=== PATIENT | female | born 1955 | race Hispanic/Latino ===

== ENCOUNTER 2018-03-23 11:58 | Inpatient (IN) | payer BC, OTHER ==
[~2018-03-23] VITALS: Ht 154.9 cm; Wt 84.1 kg
[~2018-03-23 11:58] MED LIST: ASPI-555 PO; BUPR75TA8 PO; DEXT10TA4 PO; HYDR-4068 PO; INSU300I SQ; LOSA100T29 PO; METF10004 PO; METO100T14 PO; NITR0.4T SL; PRAS10TA6 PO; PREG75 PO; TIZA4TAB4 PO; TRULIC
[2018-03-23 13:55] VITALS: BP 151/71
[2018-03-23] MEDS: NITROGLYCERIN 1GM/1 INCH PACKET TD SCH ×2 (15:31→22:30)
[2018-03-23 16:00] VITALS: BP 128/57
[2018-03-23] MEDS ORDERED: GLUCAGON 1MG KIT 1 MG ML IM PRN (19:15)
[2018-03-23] MEDS ORDERED: DEXTROSE 50%-WATER 50 ML DISP.SYRIN IV PRN (19:15)
[2018-03-23 19:36] VITALS: BP 128/54
[2018-03-23] MEDS: METOPROLOL TARTRATE 50 MG TAB PO SCH (20:30)
[2018-03-23] MEDS: ATORVASTATIN CALCIUM 20 MG TABLET PO SCH (20:30)
[2018-03-23] MEDS: INSULIN HUMULIN R 100 UNIT/ML 3ML SQ SCH (20:33)
[2018-03-23 23:23] VITALS: BP 136/47
[2018-03-24] VITALS (24 sets, daily range): BP systolic 84–180; BP diastolic 37–95
[2018-03-24 04:21] LABS: BASOPHILS % (AUTO) 0.6 % (0.0-5.0); EOSINOPHILS % (AUTO) 2.4 % (0.0-8.0); HEMATOCRIT 33.1 % (36-48); LYMPHOCYTES % (AUTO) 45.8 % (21.0-51.0); MEAN CORPUSCULAR HEMOGLOBIN 31.8 pg (27.0-33.0); MEAN CORPUSCULAR HGB CONC 36.3 g/dL (32.0-36.0); MEAN CORPUSCULAR VOLUME 87.5 fL (79-99); MONOCYTES % (AUTO) 7.7 % (3.0-13.0); NEUTROPHILS % (AUTO) 43.5 % (40.0-77.0); NUCLEATED RED BLOOD CELLS 0.1 % (0.0-0.19); PLATELET COUNT (AUTO) 253 K/uL (130-400); RED BLOOD CELL COUNT(AUTO) 3.78 MIL/uL (4.00-5.50); RED CELL DISTRIBUTION WIDTH 14.2 % (11.0-15.5); WHITE BLOOD COUNT (AUTO) 12.2 K/uL (4.8-10.8)
[2018-03-24 04:35] LABS: INR 0.95 (0.85-1.15); PARTIAL THROMBOPLASTIN TIME 29.4 SEC (26.3-35.5)
[2018-03-24 05:07] LABS: CREATININE 0.9 mg/dL (0.5-1.5); POTASSIUM 4.4 mmol/L (3.5-5.1)
[2018-03-24] MEDS: INSULIN HUMULIN R 100 UNIT/ML 3ML SQ SCH (05:49)
[2018-03-24] MEDS: NITROGLYCERIN 1GM/1 INCH PACKET TD SCH (05:56)
[2018-03-24] MEDS ORDERED: IOPAMIDOL-370 100 ML VIAL IV ONE (08:43)
[2018-03-24] MEDS ORDERED: LIDOCAINE HCL 2% 20ML ONE (08:43)
[2018-03-24] MEDS ORDERED: ISOVUE-370 50ML VIAL IV ONE (08:43)
[2018-03-24] MEDS ORDERED: HEPARIN SODIUM 1000UNIT/ML 10ML VIAL ONE ×3 (08:43→14:40)
[2018-03-24] MEDS: ASPIRIN 81 MG EC TAB PO SCH (09:00)
[2018-03-24] MEDS: METOPROLOL TARTRATE 50 MG TAB PO SCH (09:00)
[2018-03-24] MEDS ORDERED: PRASUGREL HCL 10 MG TABLET PO SCH (09:00)
[2018-03-24] MEDS ORDERED: LOSARTAN 100 MG TABLET PO SCH (09:00)
[2018-03-24] MEDS ORDERED: LABETALOL HCL 5 MG/ML 20ML VIAL IV ONE (09:35)
[2018-03-24] MEDS ORDERED: NITROGLYCERIN 4.1 GM SPRAY TL ONE (09:44)
[2018-03-24] MEDS ORDERED: CEFUROXIME 1.5GM+NS 100ML 100 ML IV SCH (10:00)
[2018-03-24] MEDS ORDERED: NITROGLYCERIN 1GM/1 INCH PACKET TD SCH (10:07)
[2018-03-24] MEDS ORDERED: CEFUROXIME SODIUM 1.5 GM VIAL IVP SCH (10:15)
[2018-03-24] MEDS ORDERED: SODIUM CHLORIDE 0.9% 1000ML 1,000 ML IV SCH ×2 (10:30→16:15)
[2018-03-24] MEDS ORDERED: OCTYL 2-CYANOACRYLATE 1 EACH TP ONE (11:02)
[2018-03-24] MEDS ORDERED: BACITRACIN 50,000 UNIT VIAL ONE (11:02)
[2018-03-24] MEDS ORDERED: PAPAVERINE HCL 30 MG/ML 2ML VIAL ONE (11:02)
[2018-03-24] MEDS ORDERED: PRED10TA23 PO (11:04)
[2018-03-24] MEDS ORDERED: LEVO500T2 PO (11:04)
[2018-03-24 11:10] LABS: CHOLESTEROL 184 mg/dL (<200); HDL CHOLESTEROL 39 mg/dL (35-85); LDL DIRECT 116 mg/dL (0-99); TRIGLYCERIDES 209 mg/dL (30-200)
[2018-03-24] MEDS ORDERED: ONDANSETRON HCL 4 MG/2 ML VIAL ONE (11:19)
[2018-03-24 11:27] LABS: HEMOGLOBIN A1C 7.9 % (4.0-6.0)
[2018-03-24] MEDS ORDERED: ROCURONIUM BROMIDE 10MG/1ML 5ML VL ONE (12:59)
[2018-03-24] MEDS ORDERED: ESMOLOL HCL 10 MG/ML 10 ML VIAL ONE (12:59)
[2018-03-24] MEDS ORDERED: NOREPINEPHRINE BITARTRATE 1 MG/1 ML ML IV ONE (12:59)
[2018-03-24] MEDS ORDERED: PROTAMINE SULFATE 10 MG/ML 25ML VIAL IV ONE (12:59)
[2018-03-24] MEDS ORDERED: MILRINONE-D5W 20 MG/100 ML 0 ML IV ONE (12:59)
[2018-03-24] MEDS ORDERED: AMINOCAPROIC ACID 250 MG/ML 20 ML VIAL IV ONE (12:59)
[2018-03-24] MEDS ORDERED: EPINEPHRINE 1 MG/ML AMPULE ONE (12:59)
[2018-03-24] MEDS ORDERED: NEOSTIGMINE 5MG/5ML SYR IV ONE (12:59)
[2018-03-24] MEDS ORDERED: LIDOCAINE PF 2% 5ML ABBOJECT ONE (12:59)
[2018-03-24] MEDS ORDERED: GLYCOPYRROLATE 0.2 MG/ML 5 ML VIAL ONE (12:59)
[2018-03-24] MEDS ORDERED: PROPOFOL 10 MG/ML 20ML VIAL IV ONE (13:00)
[2018-03-24] MEDS ORDERED: FENTANYL CITRATE PF 50 MCG/1 ML 20ML VIAL IJ ONE (13:00)
[2018-03-24] MEDS ORDERED: MIDAZOLAM HCL 1 MG/ML 5ML VIAL ONE (13:00)
[2018-03-24 14:40] LABS: ABG BASE EXCESS -5.1 mmol/L (-2.0-3.0); ABG HCO3 19.7 mmol/L (21.0-28.0); ABG OXYGEN SATURATION 98.8 % (95.0-99.0); ABG PCO2 36 mmHg (32-45)
[2018-03-24] MEDS ORDERED: THROMBIN-JMI 5000 UNIT/VIAL TP ONE (14:41)
[2018-03-24] MEDS ORDERED: NITROGLYCERIN 50 MG/D5% WATER 1 BOT ONE (14:48)
[2018-03-24 16:13] LABS: ABG BASE EXCESS -6.1 mmol/L (-2.0-3.0); ABG HCO3 19.5 mmol/L (21.0-28.0); ABG OXYGEN SATURATION 99.1 % (95.0-99.0); ABG PCO2 39 mmHg (32-45)
[2018-03-24] MEDS ORDERED: SODIUM CHLORIDE 0.9% 500ML 500 ML IV SCH (16:13)
[2018-03-24] MEDS ORDERED: SODIUM CHLORIDE 0.9% 10 ML VIAL IVP PRN (16:15)
[2018-03-24] MEDS ORDERED: NICARDIPINE HCL 100 MG in SODIUM CHLORIDE 0.9% 100 ML IV PRN (16:15)
[2018-03-24] MEDS ORDERED: POTASSIUM PHOS 15 mMOL+NS250ML 250 ML IV PRN (16:15)
[2018-03-24] MEDS ORDERED: NITROGLYCERIN 50 MG/D5% WATER 250 BOT IV SCH (16:15)
[2018-03-24] MEDS ORDERED: MORPHINE SULFATE 4 MG/1ML SYG IV PRN (16:15)
[2018-03-24] MEDS ORDERED: PROPOFOL 1000 MG/100 ML 100 ML IV PRN (16:15)
[2018-03-24] MEDS ORDERED: GLUCAGON 1MG KIT 1 MG ML IM PRN (16:15)
[2018-03-24] MEDS ORDERED: ONDANSETRON HCL 4 MG/2 ML VIAL IV PRN (16:15)
[2018-03-24] MEDS ORDERED: MORPHINE SULFATE 2 MG/ML 1ML SYG IV PRN (16:15)
[2018-03-24] MEDS ORDERED: AMINOCAPROIC ACID 15,000 MG in SODIUM CHLORIDE 0.9% 250 ML IV SCH (16:15)
[2018-03-24] MEDS ORDERED: EPINEPHRINE 2 MG in SODIUM CHLORIDE 0.9% 250 ML IV PRN (16:15)
[2018-03-24] MEDS ORDERED: ALBUMIN (HUMAN) 5% 250 ML IV PRN (16:15)
[2018-03-24] MEDS ORDERED: NOREPINEPHRINE 4MG/NS 250ML 250 ML IV PRN (16:15)
[2018-03-24] MEDS ORDERED: SODIUM BICARB 8.4% 50ML SYRINGE IV PRN (16:15)
[2018-03-24] MEDS ORDERED: ACETAMINOPHEN 650 MG SUPPOSITORY RC PRN (16:15)
[2018-03-24] MEDS ORDERED: CALCIUM GLUCONATE 1 GM in SODIUM CHLORIDE 0.9% 50 ML IV PRN (16:15)
[2018-03-24] MEDS ORDERED: DEXTROSE 50%-WATER 50 ML DISP.SYRIN IV PRN (16:15)
[2018-03-24] MEDS ORDERED: SODIUM CHLORIDE 0.9% 250 ML IV PRN (16:15)
[2018-03-24] MEDS ORDERED: SODIUM BICARB 50MEQ 50ML VIAL ONE ×2 (16:17→17:14)
[2018-03-24 17:14] LABS: ABG BASE EXCESS -6.6 mmol/L (-2.0-3.0); ABG HCO3 18.6 mmol/L (21.0-28.0); ABG PCO2 37 mmHg (32-45)
[2018-03-24 17:18] LABS: HEMATOCRIT 27.6 % (36-48); MEAN CORPUSCULAR HEMOGLOBIN 31.5 pg (27.0-33.0); MEAN CORPUSCULAR HGB CONC 35.8 g/dL (32.0-36.0); MEAN CORPUSCULAR VOLUME 87.9 fL (79-99); PLATELET COUNT (AUTO) 256 K/uL (130-400); RED BLOOD CELL COUNT(AUTO) 3.14 MIL/uL (4.00-5.50); RED CELL DISTRIBUTION WIDTH 14.2 % (11.0-15.5); WHITE BLOOD COUNT (AUTO) 20.4 K/uL (4.8-10.8)
[2018-03-24 17:30] LABS: CREATININE 1.1 mg/dL (0.5-1.5); MAGNESIUM 1.4 mg/dL (1.80-2.40); POTASSIUM 3.4 mmol/L (3.5-5.1)
[2018-03-24] MEDS: INSULIN REGULAR, HUMAN 3ML 100 UNIT in SODIUM CHLORIDE 0.9% 99 ML IV SCH ×2 (17:36)
[2018-03-24] MEDS: POTASSIUM CHLORIDE 20MEQ/100ML 100 ML IV PRN ×2 (17:44→21:42)
[2018-03-24] MEDS: MAGNESIUM 2GM PREMIX 50ML 50 ML IV PRN (18:47)
[2018-03-24] MEDS ORDERED: EPINEPHRINE 8 MG in DEXTROSE 5%-WATER 250 ML IV PRN (19:30)
[2018-03-24] MEDS ORDERED: EPINEPHRINE 8 MG in SODIUM CHLORIDE 0.9% 250 ML IV PRN (19:33)
[2018-03-24] MEDS: ATORVASTATIN CALCIUM 20 MG TABLET PO SCH (21:00)
[2018-03-24 21:06] LABS: ABG HCO3 26.7 mmol/L (21.0-28.0); ABG OXYGEN SATURATION 96.6 % (95.0-99.0); ABG PCO2 42 mmHg (32-45)
[2018-03-24 23:49] LABS: ABG BASE EXCESS -0.1 mmol/L (-2.0-3.0); ABG HCO3 23.7 mmol/L (21.0-28.0); ABG OXYGEN SATURATION 96.4 % (95.0-99.0); ABG PCO2 36 mmHg (32-45)
[2018-03-25] VITALS (33 sets, daily range): BP systolic 98–144; BP diastolic 45–71
[2018-03-25] MEDS ORDERED: CEFUROXIME 1.5GM+NS 100ML 100 ML IV SCH (00:15)
[2018-03-25] MEDS: CEFUROXIME SODIUM 1.5 GM VIAL IVP SCH ×2 (00:23→11:46)
[2018-03-25 01:53] LABS: ABG HCO3 23.5 mmol/L (21.0-28.0); ABG OXYGEN SATURATION 92.5 % (95.0-99.0); ABG PCO2 34 mmHg (32-45)
[2018-03-25] MEDS: ACETAMINOPHEN 325 MG TAB PO PRN (02:20)
[2018-03-25 03:56] LABS: HEMATOCRIT 29.3 % (36-48); MEAN CORPUSCULAR HEMOGLOBIN 30.3 pg (27.0-33.0); MEAN CORPUSCULAR HGB CONC 34.9 g/dL (32.0-36.0); MEAN CORPUSCULAR VOLUME 86.9 fL (79-99); PLATELET COUNT (AUTO) 251 K/uL (130-400); RED BLOOD CELL COUNT(AUTO) 3.37 MIL/uL (4.00-5.50); WHITE BLOOD COUNT (AUTO) 20.6 K/uL (4.8-10.8)
[2018-03-25 04:08] LABS: MAGNESIUM 1.9 mg/dL (1.80-2.40); PHOSPHORUS 3.6 mg/dL (2.5-4.9); POTASSIUM 3.7 mmol/L (3.5-5.1)
[2018-03-25] MEDS: POTASSIUM CHLORIDE 20MEQ/100ML 100 ML IV PRN ×2 (04:13→14:38)
[2018-03-25] MEDS: MAGNESIUM 2GM PREMIX 50ML 50 ML IV PRN (04:14)
[2018-03-25] MEDS: TRAMADOL HCL 50 MG TABLET PO PRN ×3 (04:22→15:21)
[2018-03-25] MEDS: ASPIRIN 81 MG EC TAB PO SCH (09:28)
[2018-03-25] MEDS: PANTOPRAZOLE SODIUM 40 MG TABLET.DR PO SCH (09:28)
[2018-03-25] MEDS: INSULIN REGULAR, HUMAN 3ML 100 UNIT in SODIUM CHLORIDE 0.9% 99 ML IV SCH ×2 (09:33)
[2018-03-25 10:19] LABS: MAGNESIUM 2.5 mg/dL (1.80-2.40); POTASSIUM 3.7 mmol/L (3.5-5.1)
[2018-03-25] MEDS ORDERED: CEFTRIAXONE SODIUM 1 GM IV SCH (12:00)
[2018-03-25] MEDS: METOPROLOL TARTRATE 25 MG TAB PO SCH ×2 (14:25→20:48)
[2018-03-25] MEDS ORDERED: LACTATED RINGERS 1000ML 1,000 ML IV ONE (15:28)
[2018-03-25] MEDS: FUROSEMIDE 20 MG TABLET PO SCH (19:10)
[2018-03-25] MEDS: ATORVASTATIN CALCIUM 10 MG TABLET PO SCH (20:48)
[2018-03-25] MEDS: ATORVASTATIN CALCIUM 20 MG TABLET PO SCH (21:00)
[2018-03-26] VITALS (16 sets, daily range): BP systolic 90–144; BP diastolic 49–69
[2018-03-26] MEDS: CEFUROXIME SODIUM 1.5 GM VIAL IVP SCH (01:28)
[2018-03-26] MEDS: TRAMADOL HCL 50 MG TABLET PO PRN ×3 (02:35→19:19)
[2018-03-26 04:01] LABS: HEMATOCRIT 26.1 % (36-48); MEAN CORPUSCULAR HEMOGLOBIN 31.9 pg (27.0-33.0); MEAN CORPUSCULAR HGB CONC 35.6 g/dL (32.0-36.0); MEAN CORPUSCULAR VOLUME 89.6 fL (79-99); PLATELET COUNT (AUTO) 241 K/uL (130-400); RED BLOOD CELL COUNT(AUTO) 2.92 MIL/uL (4.00-5.50); RED CELL DISTRIBUTION WIDTH 14.7 % (11.0-15.5); WHITE BLOOD COUNT (AUTO) 27.5 K/uL (4.8-10.8)
[2018-03-26 04:08] LABS: CREATININE 1.3 mg/dL (0.5-1.5); POTASSIUM 4.3 mmol/L (3.5-5.1)
[2018-03-26] MEDS: METOPROLOL TARTRATE 25 MG TAB PO SCH ×2 (08:55→21:18)
[2018-03-26] MEDS: ASPIRIN 81 MG EC TAB PO SCH (08:55)
[2018-03-26] MEDS: PANTOPRAZOLE SODIUM 40 MG TABLET.DR PO SCH (08:55)
[2018-03-26] MEDS: FUROSEMIDE 20 MG TABLET PO SCH ×2 (08:55→16:24)
[2018-03-26] MEDS: ACETAMINOPHEN 325 MG TAB PO PRN (08:56)
[2018-03-26] MEDS: INSULIN HUMULIN R 100 UNIT/ML 3ML SQ SCH ×3 (11:57→21:48)
[2018-03-26] MEDS: ENOXAPARIN SODIUM 30 MG/0.3 ML SQ SCH (15:34)
[2018-03-26] MEDS: ATORVASTATIN CALCIUM 10 MG TABLET PO SCH (21:18)
[2018-03-27 04:00] VITALS: BP 135/61
[2018-03-27] MEDS: TRAMADOL HCL 50 MG TABLET PO PRN (04:48)
[2018-03-27] MEDS: INSULIN HUMULIN R 100 UNIT/ML 3ML SQ SCH ×4 (05:24→21:49)
[2018-03-27] MEDS: PANTOPRAZOLE SODIUM 40 MG TABLET.DR PO SCH (07:38)
[2018-03-27] MEDS: METOPROLOL TARTRATE 25 MG TAB PO SCH ×2 (07:38→21:46)
[2018-03-27] MEDS: FUROSEMIDE 20 MG TABLET PO SCH ×2 (07:38→16:28)
[2018-03-27] MEDS: ENOXAPARIN SODIUM 30 MG/0.3 ML SQ SCH (07:38)
[2018-03-27] MEDS: ASPIRIN 81 MG EC TAB PO SCH (07:38)
[2018-03-27 08:11] VITALS: BP 132/60
[2018-03-27 11:26] VITALS: BP 119/59
[2018-03-27 13:19] LABS: HEMATOCRIT 24.8 % (36-48); MEAN CORPUSCULAR HEMOGLOBIN 30.3 pg (27.0-33.0); MEAN CORPUSCULAR HGB CONC 33.8 g/dL (32.0-36.0); MEAN CORPUSCULAR VOLUME 89.5 fL (79-99); NUCLEATED RED BLOOD CELLS 0.1 % (0.0-0.19); PLATELET COUNT (AUTO) 244 K/uL (130-400); RED BLOOD CELL COUNT(AUTO) 2.77 MIL/uL (4.00-5.50); RED CELL DISTRIBUTION WIDTH 14.6 % (11.0-15.5); WHITE BLOOD COUNT (AUTO) 19.3 K/uL (4.8-10.8)
[2018-03-27] MEDS ORDERED: INSULIN GLARGINE 100 UNITS/ML 10 ML VIAL SQ SCH (13:30)
[2018-03-27] MEDS ORDERED: LACTULOSE 20 GM/30 ML UDCUP PO PRN (14:00)
[2018-03-27 16:37] VITALS: BP 127/60
[2018-03-27 19:58] VITALS: BP 129/67
[2018-03-27] MEDS: ATORVASTATIN CALCIUM 10 MG TABLET PO SCH (21:46)
[2018-03-27] MEDS: DOCUSATE SODIUM 100 MG CAP PO SCH (21:46)
[2018-03-27] MEDS: INSULIN GLARGINE 100 UNITS/ML 10 ML VIAL SQ SCH (21:47)
[2018-03-28] VITALS (7 sets, daily range): BP systolic 123–158; BP diastolic 60–83
[2018-03-28] MEDS: TRAMADOL HCL 50 MG TABLET PO PRN (03:13)
[2018-03-28 04:04] LABS: HEMATOCRIT 24.4 % (36-48); MEAN CORPUSCULAR HEMOGLOBIN 30.8 pg (27.0-33.0); PLATELET COUNT (AUTO) 287 K/uL (130-400); RED BLOOD CELL COUNT(AUTO) 2.77 MIL/uL (4.00-5.50); RED CELL DISTRIBUTION WIDTH 14.2 % (11.0-15.5); WHITE BLOOD COUNT (AUTO) 15.9 K/uL (4.8-10.8)
[2018-03-28 04:21] LABS: BILIRUBIN,TOTAL 0.5 mg/dL (0.2-1.0); CREATININE 0.9 mg/dL (0.5-1.5); POTASSIUM 3.4 mmol/L (3.5-5.1); TOTAL PROTEIN, SERUM 6.6 g/dL (6.0-8.3)
[2018-03-28 04:39] LABS: BAND NEUTROPHILS % (MANUAL) 1 % (0-2); EOSINOPHILS % (MANUAL) 1 % (1-6); LYMPHOCYTES % (MANUAL) 26 % (22-44); MONOCYTES % (MANUAL) 2 % (2-9); SEGMENTED NEUTROPHILS % 70 % (40-70)
[2018-03-28 04:40] LABS: MAN.DIFF COMMENT-IMPRESSION MANUAL DIFFERENTIAL
[2018-03-28 04:41] LABS: PLATELET MORPHOLOGY COMMENT ADEQUATE
[2018-03-28] MEDS: INSULIN HUMULIN R 100 UNIT/ML 3ML SQ SCH ×4 (06:51→20:41)
[2018-03-28] MEDS: INSULIN GLARGINE 100 UNITS/ML 10 ML VIAL SQ SCH ×2 (06:53→20:50)
[2018-03-28] MEDS ORDERED: POTASSIUM CHLORIDE 20 MEQ ERTAB PO ONE ×2 (07:07→09:25)
[2018-03-28] MEDS: METOPROLOL TARTRATE 25 MG TAB PO SCH ×2 (07:29→20:28)
[2018-03-28] MEDS: FUROSEMIDE 20 MG TABLET PO SCH ×2 (07:30→16:04)
[2018-03-28] MEDS: DOCUSATE SODIUM 100 MG CAP PO SCH ×2 (07:30→20:38)
[2018-03-28] MEDS: ASPIRIN 81 MG EC TAB PO SCH (07:30)
[2018-03-28] MEDS: PANTOPRAZOLE SODIUM 40 MG TABLET.DR PO SCH (07:30)
[2018-03-28] MEDS: ENOXAPARIN SODIUM 30 MG/0.3 ML SQ SCH (07:31)
[2018-03-28] MEDS: ATORVASTATIN CALCIUM 10 MG TABLET PO SCH (20:38)
[2018-03-29 03:30] VITALS: BP 155/63
[2018-03-29] MEDS: INSULIN HUMULIN R 100 UNIT/ML 3ML SQ SCH ×3 (07:30→16:28)
[2018-03-29 07:56] VITALS: BP 145/71
[2018-03-29] MEDS: ASPIRIN 81 MG EC TAB PO SCH (08:41)
[2018-03-29] MEDS: METOPROLOL TARTRATE 25 MG TAB PO SCH (08:41)
[2018-03-29] MEDS: FUROSEMIDE 20 MG TABLET PO SCH ×2 (08:41→17:00)
[2018-03-29] MEDS: PANTOPRAZOLE SODIUM 40 MG TABLET.DR PO SCH (08:41)
[2018-03-29] MEDS: DOCUSATE SODIUM 100 MG CAP PO SCH (08:41)
[2018-03-29] MEDS: ENOXAPARIN SODIUM 30 MG/0.3 ML SQ SCH (08:42)
[2018-03-29] MEDS: INSULIN GLARGINE 100 UNITS/ML 10 ML VIAL SQ SCH (08:43)
[2018-03-29] MEDS ORDERED: CLOPIDOGREL BISULFATE 75 MG TAB PO SCH (09:00)
[2018-03-29 11:38] VITALS: BP 141/68
== END 2018-03-29 17:56 | disposition home health service (06) | DRG 233 ==
LOC: 2AH 13:48 → OBSVTOIN 13:48 → 2CV 03-24 15:02 → 2BH 03-25 05:55 → 2AH 03-26 15:48
PROVIDERS: ADMIT Family Medicine; ATTEND Family Medicine
PROC: 06BQ4ZZ Excision of Left Saphenous Vein, Percutaneous Endoscopic Approach (ICD-10-PCS; 2018-03-24)
PROC: B2111ZZ Fluoroscopy of Multiple Coronary Arteries using Low Osmolar Contrast (ICD-10-PCS; 2018-03-24)
PROC: B2151ZZ Fluoroscopy of Left Heart using Low Osmolar Contrast (ICD-10-PCS; 2018-03-24)
PROC: 02100Z9 Bypass Coronary Artery, One Artery from Left Internal Mammary, Open Approach (ICD-10-PCS; principal; 2018-03-24 13:25)
PROC: 4A023N7 Measurement of Cardiac Sampling and Pressure, Left Heart, Percutaneous Approach (ICD-10-PCS; 2018-03-24 13:25)
PROC: 021109W Bypass Coronary Artery, Two Arteries from Aorta with Autologous Venous Tissue, Open Approach (ICD-10-PCS; 2018-03-24 13:25)
DX: I25.110 Atherosclerotic heart disease of native coronary artery with unstable angina pectoris (principal); I21.4 Non-ST elevation (NSTEMI) myocardial infarction; N39.0 Urinary tract infection, site not specified; E44.1 Mild protein-calorie malnutrition; E11.51 Type 2 diabetes mellitus with diabetic peripheral angiopathy without gangrene; E11.65 Type 2 diabetes mellitus with hyperglycemia; E78.5 Hyperlipidemia, unspecified; F17.200 Nicotine dependence, unspecified, uncomplicated; I10 Essential (primary) hypertension; I25.2 Old myocardial infarction; Z79.4 Long term (current) use of insulin; Z79.82 Long term (current) use of aspirin; Z79.899 Other long term (current) drug therapy; Z95.5 Presence of coronary angioplasty implant and graft; Z90.721 Acquired absence of ovaries, unilateral; Z90.710 Acquired absence of both cervix and uterus; Z83.3 Family history of diabetes mellitus; Z82.49 Family history of ischemic heart disease and other diseases of the circulatory system
CPT/HCPCS: 36415; 71045; 80048; 80053; 80061; 82330; 82435; 82803; 82947; 82948; 83036; 83605; 83735; 84100; 84132; 84295; 85018; 85025; 85027; 85347; 85610; 85730; 86850; 86900; 86901; 86922; 93458; 93880; 94002; 94010; 94150; 97039; A4218; A7048; C1887; C1894; G0378; J0171; J0697; J1644; J1650; J1815; J2001; J2250; J2260; J2405; J2440; J2704; J2710; J2720; J3010; J3475; J3480; J3490; J7030; J7040; J7120; Q9967

== ENCOUNTER 2021-05-26 05:47 | Day surgery (SDC) | payer BC, OTHER ==
[2021-05-22 11:30] LABS: BASOPHILS % (AUTO) 0.6 % (0.0-5.0); EOSINOPHILS % (AUTO) 1.6 % (0.0-8.0); HEMATOCRIT 38.9 % (36-48); LYMPHOCYTES % (AUTO) 41.4 % (21.0-51.0); MEAN CORPUSCULAR HEMOGLOBIN 29.7 pg (27.0-33.0); MEAN CORPUSCULAR HGB CONC 33.7 g/dL (32.0-36.0); MEAN CORPUSCULAR VOLUME 88.2 fL (79-99); MONOCYTES % (AUTO) 5.2 % (3.0-13.0); NEUTROPHILS % (AUTO) 50.5 % (40.0-77.0); PLATELET COUNT (AUTO) 255 K/uL (130-400); RED BLOOD CELL COUNT(AUTO) 4.41 MIL/uL (4.00-5.50); RED CELL DISTRIBUTION WIDTH 13.9 % (11.0-15.5); WHITE BLOOD COUNT (AUTO) 10.1 K/uL (4.8-10.8)
[2021-05-22 11:35] LABS: APPEARANCE,URINE Clear (CLEAR); BILIRUBIN,URINE Negative (NEGATIVE); COLOR,URINE Yellow (YELLOW); GLUCOSE, URINE (UA) >=1000 mg/dL (NEGATIVE); KETONES,URINE Trace mg/dL (NEGATIVE); LEUKOCYTE ESTERASE ,URINE Negative (NEGATIVE); NITRATE,URINE Negative (NEGATIVE); OCCULT BLOOD,URINE Trace (NEGATIVE); PH,URINE 5.5 (5.0-8.0); PROTEIN,URINE >=1000 mg/dL (NEGATIVE); UROBILINOGEN,URINE 0.2 mg/dL (0.2-1.0)
[2021-05-22 11:42] LABS: CREATININE 1.3 mg/dL (0.5-1.5); INR 1.03 (0.85-1.15); POTASSIUM 3.9 mmol/L (3.5-5.1); PROTHROMBIN TIME 11.2 SEC (9.6-11.6)
[2021-05-22 11:44] LABS: PARTIAL THROMBOPLASTIN TIME 29.3 SEC (26.3-35.5)
[2021-05-22 11:55] LABS: BACTERIA,URINE Few /HPF (None Seen); RBC,URINE 0-1 /HPF (0-1); WBC,URINE 0-1 /HPF (0-1)
[~2021-05-26] VITALS: Ht 154.9 cm; Wt 84.8 kg
[2021-05-26] VITALS (13 sets, daily range): BP systolic 121–160; BP diastolic 45–66
[~2021-05-26 05:47] MED LIST changes: +ASPI-1443 PO; -ASPI-555 PO; -BUPR75TA8 PO; +CILO50TA PO; -DEXT10TA4 PO; +DULA1.5P SQ; +ERGO500093 PO; +EVOL140S2 SQ; -HYDR-4068 PO; +ISOS30TA92 PO; +LINA290C PO; -LOSA100T29 PO; +LOSA50TA64 PO; -METF10004 PO; -NITR0.4T SL; +NITR0.4T50 SL; +PIOG30TA70 PO; -PRAS10TA6 PO; -TIZA4TAB4 PO; -TRULIC
[2021-05-26] MEDS ORDERED: 0.9%NACL 1000ML 1,000 ML IV ONE (06:18)
[2021-05-26] MEDS ORDERED: INSULIN HUMULIN R 100 UNIT/ML 3ML ONE ×2 (06:37→09:57)
[2021-05-26 07:10] LABS: CREATININE 1.2 mg/dL (0.5-1.5); POTASSIUM 3.6 mmol/L (3.5-5.1)
[2021-05-26] MEDS ORDERED: HEPARIN 1,000 UNIT VIAL ONE (07:11)
[2021-05-26] MEDS ORDERED: IOHEXOL-350 50ML VIAL IV ONE ×2 (07:12→08:07)
[2021-05-26] MEDS ORDERED: IOHEXOL 350 MG/ML 100ML INFUS..BTL IV ONE (07:12)
[2021-05-26] MEDS ORDERED: LIDOCAINE HCL 400MG/20ML VIAL ONE (07:12)
[2021-05-26] MEDS ORDERED: HEPARIN 10,000 UNIT/10ML (1,000 UNIT/ML) VIAL ONE (07:12)
[2021-05-26] MEDS ORDERED: LABETALOL 20MG VIAL IV ONE (07:44)
[2021-05-26] MEDS ORDERED: ICOS1CAP PO (07:52)
[2021-05-26] MEDS ORDERED: 0.9%NACL 10ML VIAL IVP SCH (09:00)
[2021-05-26] MEDS ORDERED: DEXTROSE 50%-WATER 50 ML DISP.SYRIN IV PRN (09:00)
[2021-05-26] MEDS: INSULIN HUMULIN R 100 UNIT/ML 3ML SQ SCH ×2 (10:00→12:40)
[2021-05-26] MEDS ORDERED: INSULIN HUMULIN R 100 UNIT/ML 3ML SQ SCH (12:00)
== END 2021-05-26 17:15 | disposition home or self-care (01) ==
LOC: DAH 05:47
PROVIDERS: ATTEND Internal Medicine Cardiovascular Disease
DX: I25.119 Atherosclerotic heart disease of native coronary artery with unspecified angina pectoris (principal); I25.729 Atherosclerosis of autologous artery coronary artery bypass graft(s) with unspecified angina pectoris; T82.855A Stenosis of coronary artery stent, initial encounter; I10 Essential (primary) hypertension; E11.9 Type 2 diabetes mellitus without complications; E78.5 Hyperlipidemia, unspecified; F17.200 Nicotine dependence, unspecified, uncomplicated; E03.9 Hypothyroidism, unspecified; I25.2 Old myocardial infarction; Z79.82 Long term (current) use of aspirin; Z79.01 Long term (current) use of anticoagulants; Z79.899 Other long term (current) drug therapy; Z79.84 Long term (current) use of oral hypoglycemic drugs; Z95.5 Presence of coronary angioplasty implant and graft; Z90.89 Acquired absence of other organs; Z90.49 Acquired absence of other specified parts of digestive tract; Z90.410 Acquired total absence of pancreas; Z98.890 Other specified postprocedural states; Z82.49 Family history of ischemic heart disease and other diseases of the circulatory system; Z83.3 Family history of diabetes mellitus; Z72.89 Other problems related to lifestyle; Y83.8 Other surgical procedures as the cause of abnormal reaction of the patient, or of later complication, without mention of misadventure at the time of the procedure
CPT/HCPCS: 36415 ×2; 71045; 80048 ×2; 81001; 82948 ×3; 85025; 85610; 85730; 93005; 93459; A4215; A4216; A4221; A4222; A4223 ×3; A4335; A4554; A4606; A4663; C1769; C1894; J1644 ×2; J1815 ×3; J3490 ×2; J7030; Q9965; Q9967 ×3